=== PATIENT | female | born 1965 | race Caucasian/White ===

== ENCOUNTER 2023-05-11 19:29 | Emergency (ER) | payer SELFPAY ==
[~2023-05-11] VITALS: Ht 162.6 cm; Wt 72.0 kg
[2023-05-11 19:42] VITALS: BP 165/75; PULSE 86; RESP 20; TEMP 98.5; O2SAT 96
[2023-05-11] MEDS ORDERED: ACETAMINOPHEN 325MG TABLET PO ONE (19:45)
[2023-05-11] MEDS ORDERED: KETOROLAC 30MG/ML VIAL IM ONE (19:45)
[2023-05-11] MEDS ORDERED: IBUP-2028 MT (21:51)
[2023-05-11] MEDS ORDERED: LIDO700A15 TP (21:51)
[2023-05-11] MEDS ORDERED: TOPUD MT (21:51)
== END 2023-05-11 22:21 | disposition home or self-care (01) ==
LOC: ER 19:29
DX: S20.219A Contusion of unspecified front wall of thorax, initial encounter (principal); M54.50 Low back pain, unspecified; V49.9XXA Car occupant (driver) (passenger) injured in unspecified traffic accident, initial encounter; Y93.89 Activity, other specified; Y92.89 Other specified places as the place of occurrence of the external cause; Y99.8 Other external cause status
CPT/HCPCS: 99283; 71045; 96372; J1885